=== PATIENT | male | born 1995 | race Caucasian/White ===

== ENCOUNTER 2019-05-25 14:58 | Emergency (ER) | payer OTHER ==
[2019-05-25] MEDS ORDERED: ASPIRIN CHEW 81 MG TABLET PO STA (15:27)
--- NOTE | 2019-05-25 15:40 | ED Physician Documentation ---
History of Present Illness - Stated complaint Stated Complaint: SHAKY/PREV CP/OVERHEATED - Chief complaint Chief Complaint: General - History obtained from History obtained from: Patient, Family - History of Present Illness Timing: How many hours ago (1.5) Pain level max: 3 Pain level now: 0 - Additonal information Additional information: 24-year-old male presents to the emergency department stating that he began to feel shaky, breathing fast felt like his chest was heavy and then developed chest pressure. Hands were tingling and numb. Patient states that this has never happened before. He does have a history of anxiety but states that this was different than his normal panic attack. He currently feels normal. States that the entire thing lasted approximately 20 minutes. No recent illnesses. No coughing. No fevers. No congestion. Nothing makes it better or worse. No cardiac history Review of Systems Constitutional: denies: Fever, Chills Cardiac: denies: Palpitations Respiratory: denies: Cough, Wheezing GI: denies: Nausea, Vomiting, Diarrhea Skin: denies: Rash Musculoskeletal: denies: Neck pain, Back pain PD PAST MEDICAL HISTORY - Past Medical History Past Medical History: Yes Cardiovascular: None Respiratory: None Neuro: None Endocrine/Autoimmune: None GI: None : None HEENT: None Psych: Depression, Anxiety, Panic attacks Musculoskeletal: None Derm: None - Past Surgical History Past Surgical History: No HEENT: Tonsil/Adenoidectomy - Present Medications Home Medications: Ambulatory Orders Medication Instructions Recorded Confirmed Azithromycin 250 mg PO DAILY #4 tablet 12/10/15 Ipratropium [Atrovent] 1 puffs PO PRN 12/10/15 oxyCODONE [Roxicodone] 5 mg PO Q4-6H PRN #15 tablet 12/10/15 predniSONE [Deltasone] 40 mg PO DAILY 5 Days tablet 12/10/15 - Allergies Allergies/Adverse Reactions: Allergies Allergy/AdvReac Type Severity Reaction Status Date / Time ibuprofen Allergy Unknown Verified 05/25/19 15:07 - Social History Does the pt smoke?: Yes Smoking Status: Current every day smoker Does the pt drink ETOH?: Yes Does the pt have substance abuse?: No - Immunizations Immunizations are current?: Yes - POLST Patient has POLST: No PD ED PE NORMAL - Vitals Vital signs reviewed: Yes - General General: Alert and oriented X 3, No acute distress, Well developed/nourished - HEENT HEENT: PERRL, Moist mucous membranes - Neck Neck: Supple, no meningeal sign - Cardiac Cardiac: RRR, No murmur, No rub, Strong equal pulses - Respiratory Respiratory: No respiratory distress, Clear bilaterally - Abdomen Abdomen: Soft, Non tender, Non distended - Derm Derm: Warm and dry - Extremities Extremities: No edema, No calf tenderness / cord - Neuro Neuro: Alert and oriented X 3 - Psych Psych: Normal mood, Normal affect Results - Vitals Vitals: Vital Signs - 24 hr 05/25/19 05/25/19 15:04 16:42 Temperature 36.4 C L Heart Rate 89 79 Respiratory 19 16 Rate Blood Pressure 138/83 H 132/86 H O2 Saturation 99 97 Oxygen O2 Source Room air - EKG (time done) 1534 Rate: Rate (enter#) (95) Rhythm: NSR Atkins: Normal Intervals: Normal [place] QRS: Normal Ischemia: Normal ST segments - Labs Labs: Laboratory Tests 05/25/19 05/25/19 05/25/19 15:45 15:45 15:45 WBC 7.5 RBC 5.41 Hgb 16.2 Hct 47.3 MCV 87.4 MCH 29.9 MCHC 34.2 RDW 11.5 L Plt Count 217 MPV 10.0 Neut # (Auto) 4.5 Lymph # (Auto) 2.3 Benson # (Auto) 0.5 Eos # (Auto) 0.1 Baso # (Auto) 0.1 Absolute Nucleated RBC 0.00 Nucleated RBC % 0.0 Sodium 138 Potassium 4.0 Chloride 105 Carbon Dioxide 25 Anion Gap 8.0 BUN 15 Creatinine 0.9 Estimated GFR (MDRD) 104 Glucose 100 Calcium 9.4 Total Bilirubin 0.5 AST 23 ALT 27 Alkaline Phosphatase 76 Troponin I High Sens 4.8 Total Protein 7.8 Albumin 4.6 Globulin 3.2 Albumin/Globulin Ratio 1.4 Lipase 24 - Rads (name of study) cxr Radiology: Prelim report reviewed, EMP read contemporaneously, See rad report (normal) PD MEDICAL DECISION MAKING - ED course Complexity details: reviewed results, re-evaluated patient, considered differential, d/w patient, d/w family ED course: 24-year-old male presents the emergency department with atypical chest pain. Negative high-sensitivity troponin. Normal EKG. Symptoms resolved prior to arrival. Sounds like he had a panic attack. Patient is well-appearing, nontoxic. Afebrile. Patient counseled regarding signs and symptoms for which I believe and urgent re-evaluation would be necessary. Patient with good understanding of and agreement to plan and is comfortable going home at this time This document was made in part using voice recognition software. While efforts are made to proofread this document, sound alike and grammatical errors may occur. Departure - Departure Disposition: 01 Home, Self Care Clinical Impression: Anxiety attack Condition: Good Instructions: ED Stress React Follow-Up: DEVONTE CUEVA DO [Primary Care Provider] - Within 1 week Comments: Return if you worsen. Follow-up with your doctor for further care. Your heart testing is normal today. Discharge Date/Time: 05/25/19 16:45
[2019-05-25 15:55] LABS: BASOPHILS # (AUTO) 0.1 10^3/uL (0.0-0.1); BASOPHILS % (AUTO) 0.8 %; EOSINOPHILS # (AUTO) 0.1 10^3/uL (0.0-0.7); EOSINOPHILS % (AUTO) 1.9 %; HGB - HEMOGLOBIN 16.2 g/dL (14.0-18.0); LYMPHOCYTES # (AUTO) 2.3 10^3/uL (1.5-3.5); LYMPHOCYTES % (AUTO) 30.2 %; MEAN CORPUSCULAR HEMOGLOBIN 29.9 pg (27.0-31.0); MEAN CORPUSCULAR HGB CONC 34.2 g/dL (32.0-36.0); MEAN CORPUSCULAR VOLUME 87.4 fL (80.0-94.0); MONOCYTES # (AUTO) 0.5 10^3/uL (0.0-1.0); MONOCYTES % (AUTO) 6.6 %; NEUTROPHILS # (AUTO) 4.5 10^3/uL (1.5-6.6); NEUTROPHILS % (AUTO) 60.1 %; PLT - PLATELET COUNT 217 10^3/uL (130-450); RED BLOOD COUNT 5.41 10^6/uL (4.70-6.10); RED CELL DISTRIBUTION WIDTH 11.5 % (12.0-15.0); WHITE BLOOD COUNT 7.5 x10^3/uL (4.8-10.8)
--- NOTE | 2019-05-25 16:05 | XRAY Report ---
Reason: Chest Pain Procedure Date: 05/25/2019 Accession Number: [id number] / [id number] Procedure: XR - Chest 1 View X-Ray CPT Code: 95013 FULL RESULT: EXAM: CHEST RADIOGRAPHY EXAM DATE: 05/25/2019 03:51 PM. CLINICAL HISTORY: Chest Pain. COMPARISON: CHEST 2 VIEW PA/LAT 12/10/2015 8:15 AM. TECHNIQUE: 1 view. FINDINGS: Cardiac leads overlie the chest. Heart size is normal. No consolidation, pleural effusion, or pneumothorax. IMPRESSION: No acute cardiopulmonary findings. [facility]
[2019-05-25 16:10] LABS: ALBUMIN 4.6 g/dL (3.2-5.5); ALBUMIN/GLOBULIN RATIO 1.4 (1.0-2.2); BILIRUBIN,TOTAL 0.5 mg/dL (0.2-1.0); CALCIUM 9.4 mg/dL (8.5-10.3); CREATININE 0.9 mg/dL (0.6-1.2); TOTAL PROTEIN 7.8 g/dL (6.7-8.2)
[2019-05-25 16:43] VITALS: BP 132/86
== END 2019-05-25 16:45 | disposition home or self-care (01) ==
LOC: ED 14:58
DX: F41.8 Other specified anxiety disorders (principal); F17.200 Nicotine dependence, unspecified, uncomplicated
CPT/HCPCS: 36415; 71045; 80053; 83690; 84484; 85025; 93005; 99284; A9270